=== PATIENT | male | born 1955 | race Caucasian/White ===

== ENCOUNTER → 2019-02-13 | Day surgery (SDC) | payer BC ==
[~2019-02-13] VITALS: Ht 167.6 cm; Wt 79.4 kg
[~2019-02-13] MED LIST: ALLOPURINOL300 MG PO; AMLODIPINE BESY10 MG PO; GLUCOPHAGE1000 MG PO; HYDR25T PO; LEVOXYL75 MCG PO; ZESTRIL40 MG PO
--- NOTE | ~2019-02-13 | PROC NOTE ---
[place], [place] PROCEDURE NOTE NAME: LIVAN LARA UNIT #: [id number] ROOM: DOCTOR: LEONARDA WADSWORTH MD,KAILEY BIRTHDATE: [birth year] DOS: 02/13/2019 BRONCHOSCOPY REPORT PREOPERATIVE DIAGNOSES: Bilateral pulmonary nodule, silicosis, abnormal PPD test. POSTOPERATIVE DIAGNOSES: Bilateral pulmonary nodule, silicosis, abnormal PPD test. COMPLICATIONS: None. PROCEDURE DESCRIPTION: Informed consent obtained for the patient. The patient brought to the OR and placed in supine position. Conscious sedation administered by the Anesthesia Department. After achieving proper sedation, airway introduced into the mouth. Bronchoscope advanced to airway into laryngeal area. Epiglottis and vocal cords were seen. Vocal cords moving symmetrical with movement. Tracheal lumen, right upper, right middle, right lower, left upper, lingular, and lower bronchi all examined. Minimal secretion present in endobronchial subsegment. Bronchial washing taken, endobronchial subsegment bilaterally without difficulty, sent for culture. Procedure well tolerated by the patient without difficulty. Postoperative findings were discussed with the patient's family members. KAILEY BROWER MD CM:PROCNOTE:PROCEDURE NOTE [id number] KAILEY WADSWORTH MD
[2019-02-13 07:20] VITALS: BP 136/83
[2019-02-13 08:49] VITALS: BP 110/69
[2019-02-13 09:04] VITALS: BP 127/69
[2019-02-13 09:16] VITALS: BP 122/71
[2019-02-14 16:06] LABS: ACID FAST SPEC PROCESSING Concentration (.)
== END | disposition home or self-care (01) ==
LOC: SDC 02-11 14:00
PROVIDERS: Internal Medicine Critical Care Medicine
DX: J62.8 Pneumoconiosis due to other dust containing silica (principal); I10 Essential (primary) hypertension; R76.12 Nonspecific reaction to cell mediated immunity measurement of gamma interferon antigen response without active tuberculosis; E11.9 Type 2 diabetes mellitus without complications; Z87.891 Personal history of nicotine dependence; Z98.890 Other specified postprocedural states; Z79.84 Long term (current) use of oral hypoglycemic drugs; Z79.899 Other long term (current) drug therapy; Z82.49 Family history of ischemic heart disease and other diseases of the circulatory system

== ENCOUNTER → 2023-01-17 | Outpatient (CLI) | payer BC ==
[~2023-01-17] MED LIST changes: +CEPHALEXIN500 M1 PO
[2023-01-17 10:38] LABS: HEMATOCRIT 45.1 % (42.0-52.0); MEAN CELL VOLUME 82.3 fl (80.0-94.0); MEAN CORPUSCULAR HGB 28.6 pg (27.0-31.0); MEAN CORPUSCULAR HGB CONC 34.8 g/dl (33.0-37.0); MEAN PLATELET VOLUME 10.3 fl (9.6-12.3); PLATELET COUNT AUTOMATED 341 10*3/uL (130-400); RED BLOOD COUNT 5.48 10*6/uL (4.50-5.90); RED CELL DISTRI WIDTH 12.9 % (0-14.5); WHITE BLOOD COUNT 10.3 10*3/uL (4.8-10.8)
[2023-01-17 10:44] LABS: BILIRUBIN Negative (Negative); BLOOD Negative (Negative); CLARITY Clear (Clear); COLOR Yellow (Yellow); GLUCOSE Negative (Negative); KETONE Negative (Negative); LEUKO ESTERASE Negative (Negative); NITRITE Negative (Negative); SPECIFIC GRAVITY 1.025 (1.001-1.030)
[2023-01-17 10:52] LABS: MANUAL DIFF REFLEX YES
[2023-01-17 11:00] LABS: BACTERIA TRACE; WBC 0-2 wbc/hpf (0-5)
[2023-01-17 11:28] LABS: BASOPHILS 1 % (0-1); BURR CELLS FEW; OVALOCYTES FEW; PLATELET SUFFICIENCY NORMAL (NORMAL); POLYCHROMASIA SLIGHT; TOTAL CELLS COUNTED 100 #CELLS; TOXIC GRANULATION SLIGHT; VACUOLATION OF NEUTROPHILS SLIGHT
[2023-01-17 11:52] LABS: ALKALINE PHOSPHATASE 73 U/L (46-116); BUN 13 mg/dl (9-23); CHLORIDE 106 mmol/L (98-107); POTASSIUM 3.3 mmol/L (3.4-5.1); SGPT/ALT 31 U/L (10-49); TOTAL PROTEIN 6.9 gm/dL (6.0-8.0)
== END | disposition home or self-care (01) ==
LOC: LAB 10:17
PROVIDERS: ATTEND Urology
DX: R33.9 Retention of urine, unspecified (principal); R31.9 Hematuria, unspecified

== ENCOUNTER → 2023-01-22 | Outpatient (CLI) | payer BC | END | disposition home or self-care (01) | LOC: CT 00:20 | PROVIDERS: ATTEND Urology | DX: K76.0 Fatty (change of) liver, not elsewhere classified (principal); R31.9 Hematuria, unspecified; R33.9 Retention of urine, unspecified; J98.11 Atelectasis; K80.20 Calculus of gallbladder without cholecystitis without obstruction; N40.0 Benign prostatic hyperplasia without lower urinary tract symptoms; R59.0 Localized enlarged lymph nodes; R91.1 Solitary pulmonary nodule ==

== ENCOUNTER → 2023-05-17 | Outpatient (CLI) | payer BC ==
[2023-05-17 10:05] LABS: BASO # 0.1 10*3/uL (0.0-0.1); BASO % 1.1 % (0.0-1.0); EOS # 0.1 10*3/uL (0.0-0.4); EOS % 1.3 % (1.0-4.0); HEMATOCRIT 46.2 % (42.0-52.0); LYMPH % 12.5 % (27.0-41.0); MEAN CELL VOLUME 82.6 fl (80.0-94.0); MEAN CORPUSCULAR HGB 27.9 pg (27.0-31.0); MEAN CORPUSCULAR HGB CONC 33.8 g/dl (33.0-37.0); MEAN PLATELET VOLUME 10.4 fl (9.6-12.3); MONO # 0.7 10*3/uL (0.1-1.0); MONO % 8.7 % (3.0-9.0); NEUT # 5.9 10*3/uL (2.3-7.9); NEUT % 74.8 % (47.0-73.0); PLATELET COUNT AUTOMATED 274 10*3/uL (130-400); RED BLOOD COUNT 5.59 10*6/uL (4.50-5.90); RED CELL DISTRI WIDTH 13.2 % (0-14.5); WHITE BLOOD COUNT 7.9 10*3/uL (4.8-10.8)
[2023-05-17 10:32] LABS: ALKALINE PHOSPHATASE 73 U/L (46-116); BUN 10 mg/dl (9-23); CHLORIDE 104 mmol/L (98-107); POTASSIUM 3.2 mmol/L (3.4-5.1); SGPT/ALT 31 U/L (5-49); TOTAL PROTEIN 6.8 gm/dL (6.0-8.0)
[2023-05-17 10:33] LABS: URIC ACID 5.9 mg/dL (3.7-9.2)
== END | disposition home or self-care (01) ==
LOC: LAB 01:41
PROVIDERS: Internal Medicine Nephrology; ATTEND Urology
DX: I10 Essential (primary) hypertension (principal); D40.0 Neoplasm of uncertain behavior of prostate; R53.83 Other fatigue; E11.65 Type 2 diabetes mellitus with hyperglycemia; M10.9 Gout, unspecified

== ENCOUNTER 2023-06-03 16:16 | Inpatient (IN) | payer BC, MEDICARE ==
[~2023-06-03] VITALS: Ht 167.6 cm; Wt 73.7 kg
[2023-06-03 16:24] VITALS: BP 124/69
[2023-06-03] MEDS ORDERED: SODIUM CHLORIDE 0.9% 1,000 ML IV ONE (16:35)
[2023-06-03 16:52] LABS: BILIRUBIN Negative (Negative); BLOOD 2+ (Negative); CLARITY Clear (Clear); COLOR Yellow (Yellow); GLUCOSE Negative (Negative); KETONE Negative (Negative); LEUKO ESTERASE Negative (Negative); NITRITE Negative (Negative); PH 5.5 (4.5-8.0); SPECIFIC GRAVITY 1.015 (1.001-1.030); UROBILINOGEN 0.2 E.U./dl (0.0-1.0)
[2023-06-03 16:52] LABS: BASO # 0.1 10*3/uL (0.0-0.1); BASO % 0.5 % (0.0-1.0); EOS # 0.1 10*3/uL (0.0-0.4); EOS % 0.3 % (1.0-4.0); HEMATOCRIT 53.1 % (42.0-52.0); LYMPH # 1.3 10*3/uL (1.3-4.4); LYMPH % 7.3 % (27.0-41.0); MEAN CELL VOLUME 83.5 fl (80.0-94.0); MEAN CORPUSCULAR HGB CONC 33.5 g/dl (33.0-37.0); MEAN PLATELET VOLUME 10.8 fl (9.6-12.3); MONO # 1.2 10*3/uL (0.1-1.0); MONO % 6.6 % (3.0-9.0); NEUT # 14.9 10*3/uL (2.3-7.9); NEUT % 84.1 % (47.0-73.0); PLATELET COUNT AUTOMATED 546 10*3/uL (130-400); RED BLOOD COUNT 6.36 10*6/uL (4.50-5.90); RED CELL DISTRI WIDTH 13.6 % (0-14.5); WHITE BLOOD COUNT 17.8 10*3/uL (4.8-10.8)
[2023-06-03 17:03] LABS: BACTERIA TRACE; EPITHELIAL CELLS 0-2; RBC 31-40 rbc/hpf (0-2); WBC 0-2 wbc/hpf (0-5)
[2023-06-03] MEDS ORDERED: POTASSIUM CHLORIDE 20 MEQ TAB PO ONE (17:25)
[2023-06-03] MEDS ORDERED: AZITHROMYCIN 250 ML IV ONE (19:20)
[2023-06-03] MEDS ORDERED: Ceftriaxone Sodium 1 GM/10 ML SYR IV ONE (19:20)
[2023-06-03 20:19] VITALS: BP 145/83
[2023-06-03] MEDS ORDERED: BISACODYL 10 MG SUPP R PRN (20:55)
[2023-06-03] MEDS ORDERED: ACETAMINOPHEN 325 MG TAB PO PRN (20:55)
[2023-06-03] MEDS ORDERED: MORPHINE Sulfate 2 MG/ML SYR IV PRN (20:55)
[2023-06-03] MEDS ORDERED: BISACODYL 5 MG TAB PO PRN (20:55)
[2023-06-03] MEDS ORDERED: Magnesium Hydroxide 30 ML UDC PO PRN (20:55)
[2023-06-03] MEDS ORDERED: Acetaminophen/Hydrocodone 5 MG/325 MG TABLET PO PRN (20:55)
[2023-06-03] MEDS ORDERED: TEMAZEPAM 15 MG CAP PO PRN (20:55)
[2023-06-03] MEDS ORDERED: Pantoprazole Sodium 40 MG TAB PO PRN (21:00)
[2023-06-03] MEDS ORDERED: SODIUM CHLORIDE 0.9% 1,000 ML IV SCH (21:05)
[2023-06-03] MEDS ORDERED: DEXTROSE 10 % IN WATER 250 ML IV PRN (21:05)
[2023-06-03] MEDS ORDERED: INSULIN LISPRO 1 UNIT/0.01 ML SQ SCH (22:00)
[2023-06-04 00:13] VITALS: BP 137/71
[2023-06-04 06:27] VITALS: BP 173/88
[2023-06-04 06:52] LABS: BASO # 0.1 10*3/uL (0.0-0.1); BASO % 0.5 % (0.0-1.0); EOS # 0.1 10*3/uL (0.0-0.4); EOS % 1.1 % (1.0-4.0); HEMATOCRIT 47.2 % (42.0-52.0); LYMPH # 1.4 10*3/uL (1.3-4.4); LYMPH % 10.5 % (27.0-41.0); MEAN CORPUSCULAR HGB 27.9 pg (27.0-31.0); MEAN CORPUSCULAR HGB CONC 33.7 g/dl (33.0-37.0); MEAN PLATELET VOLUME 10.9 fl (9.6-12.3); MONO # 1.2 10*3/uL (0.1-1.0); MONO % 9.3 % (3.0-9.0); NEUT # 10.1 10*3/uL (2.3-7.9); NEUT % 77.4 % (47.0-73.0); RED BLOOD COUNT 5.69 10*6/uL (4.50-5.90); RED CELL DISTRI WIDTH 13.8 % (0-14.5); WHITE BLOOD COUNT 13.1 10*3/uL (4.8-10.8)
[2023-06-04 06:53] LABS: PLATELET COUNT AUTOMATED 377 10*3/uL (130-400)
[2023-06-04 08:35] LABS: BUN 23 mg/dl (9-23); CHLORIDE 104 mmol/L (98-107); FREE T4 2.12 ng/dl (0.89-1.76); POTASSIUM 3.4 mmol/L (3.4-5.1)
[2023-06-04 09:53] VITALS: BP 145/93
[2023-06-04] MEDS ORDERED: Enoxaparin Sodium 40 MG/0.4 ML SYR SC SCH (10:00)
[2023-06-04] MEDS ORDERED: GUAIFENESIN 600 MG TAB ER PO SCH (10:00)
[2023-06-04 14:39] VITALS: BP 154/85
[2023-06-04] MEDS ORDERED: FINASTERIDE5 M1 PO (15:51)
[2023-06-04] MEDS ORDERED: VITAMIN D325 MC1 PO (15:52)
[2023-06-04] MEDS ORDERED: CIPRO500 MG PO (15:53)
[2023-06-04] MEDS ORDERED: Ceftriaxone Sodium 1 GM,IV 1 EA in SYRINGE INFUSION 10 ML IV SCH (18:00)
[2023-06-04 20:00] VITALS: BP 168/69
[2023-06-04] MEDS ORDERED: AZITHROMYCIN 250 ML IV SCH (20:00)
[2023-06-05] VITALS: BP 158/68
[2023-06-05 05:33] LABS: ALKALINE PHOSPHATASE 43 U/L (46-116); BUN 16 mg/dl (9-23); CHLORIDE 103 mmol/L (98-107); SGPT/ALT 16 U/L (5-49); TOTAL PROTEIN 5.8 gm/dL (6.0-8.0)
[2023-06-05] MEDS ORDERED: Levothyroxine Sodium 75 MCG TAB PO SCH (06:00)
[2023-06-05 06:08] LABS: BASO # 0.1 10*3/uL (0.0-0.1); BASO % 0.5 % (0.0-1.0); EOS # 0.1 10*3/uL (0.0-0.4); EOS % 0.6 % (1.0-4.0); HEMATOCRIT 43.5 % (42.0-52.0); LYMPH # 0.8 10*3/uL (1.3-4.4); MEAN CELL VOLUME 84.5 fl (80.0-94.0); MEAN CORPUSCULAR HGB CONC 33.1 g/dl (33.0-37.0); MEAN PLATELET VOLUME 11.6 fl (9.6-12.3); NEUT # 8.5 10*3/uL (2.3-7.9); NEUT % 80.3 % (47.0-73.0); PLATELET COUNT AUTOMATED 288 10*3/uL (130-400); RED BLOOD COUNT 5.15 10*6/uL (4.50-5.90); RED CELL DISTRI WIDTH 13.4 % (0-14.5); WHITE BLOOD COUNT 10.5 10*3/uL (4.8-10.8)
[2023-06-05 08:55] VITALS: BP 163/93
[2023-06-05] MEDS ORDERED: FINASTERIDE 5 MG TAB PO SCH (10:00)
[2023-06-05] MEDS ORDERED: Vitamin D 1,000 IU TAB (25 MCG) PO SCH (10:00)
[2023-06-05] MEDS ORDERED: Tamsulosin Hydrochloride 0.4 MG CAP PO SCH (10:00)
[2023-06-05] MEDS ORDERED: LISINOPRIL 40 MG TAB PO SCH (10:00)
[2023-06-05] MEDS ORDERED: ALLOPURINOL 300 MG TAB PO SCH (10:00)
[2023-06-05 12:28] VITALS: BP 187/90
[2023-06-05 12:46] VITALS: BP 164/82
[2023-06-05] MEDS ORDERED: TAMSULOSIN HCL0.4 MG PO (14:18)
== END 2023-06-05 15:47 | disposition home or self-care (01) | DRG 871 ==
LOC: ED 16:16 → 5E 19:48 → EDHOLD 19:48 → 5E 06-04 13:56
PROVIDERS: Nurse Practitioner Family; Student in an Organized Health Care Education/Training Program; ADMIT Internal Medicine; ATTEND Internal Medicine
DX: A41.9 Sepsis, unspecified organism (principal); N17.0 Acute kidney failure with tubular necrosis; D84.89 Other immunodeficiencies; E87.6 Hypokalemia; R33.9 Retention of urine, unspecified; I10 Essential (primary) hypertension; J20.9 Acute bronchitis, unspecified; D75.839 Thrombocytosis, unspecified; R31.9 Hematuria, unspecified; K80.20 Calculus of gallbladder without cholecystitis without obstruction; E11.65 Type 2 diabetes mellitus with hyperglycemia; E03.9 Hypothyroidism, unspecified; E78.5 Hyperlipidemia, unspecified; J84.10 Pulmonary fibrosis, unspecified; Z79.899 Other long term (current) drug therapy; Z87.891 Personal history of nicotine dependence; Z79.84 Long term (current) use of oral hypoglycemic drugs; Z88.8 Allergy status to other drugs, medicaments and biological substances

== ENCOUNTER → 2023-06-11 | Outpatient (CLI) | payer BC, MEDICARE ==
[~2023-06-11] MED LIST changes: +CIPRO500 MG PO; +FINASTERIDE5 M1 PO; +TAMSULOSIN HCL0.4 MG PO; +VITAMIN D325 MC1 PO
[2023-06-11 09:28] LABS: BASO # 0.1 10*3/uL (0.0-0.1); BASO % 0.9 % (0.0-1.0); EOS # 0.2 10*3/uL (0.0-0.4); EOS % 1.5 % (1.0-4.0); HEMATOCRIT 48.1 % (42.0-52.0); LYMPH # 1.4 10*3/uL (1.3-4.4); MEAN CELL VOLUME 83.7 fl (80.0-94.0); MEAN CORPUSCULAR HGB 27.7 pg (27.0-31.0); MEAN CORPUSCULAR HGB CONC 33.1 g/dl (33.0-37.0); MONO # 0.7 10*3/uL (0.1-1.0); NEUT # 9.3 10*3/uL (2.3-7.9); NEUT % 78.4 % (47.0-73.0); PLATELET COUNT AUTOMATED 445 10*3/uL (130-400); RED BLOOD COUNT 5.75 10*6/uL (4.50-5.90); RED CELL DISTRI WIDTH 13.6 % (0-14.5); WHITE BLOOD COUNT 11.8 10*3/uL (4.8-10.8)
[2023-06-11 09:38] LABS: ACT PARTIAL THROMBO TIME 28.2 SECONDS (20.0-32.1)
[2023-06-11 10:08] LABS: ALKALINE PHOSPHATASE 57 U/L (46-116); BUN 14 mg/dl (9-23); CHLORIDE 99 mmol/L (98-107); POTASSIUM 3.4 mmol/L (3.4-5.1); SGPT/ALT 25 U/L (5-49)
== END | disposition home or self-care (01) ==
LOC: LAB 02:08
PROVIDERS: ATTEND Urology
DX: Z01.818 Encounter for other preprocedural examination (principal); D58.9 Hereditary hemolytic anemia, unspecified; I10 Essential (primary) hypertension

== ENCOUNTER 2023-06-13 12:41 | Emergency (ER) | payer BC ==
[~2023-06-13] VITALS: Wt 72.6 kg
== END 2023-06-13 14:30 | disposition left against medical advice (07) ==
LOC: ED 12:41
DX: R42 Dizziness and giddiness (principal); Z53.21 Procedure and treatment not carried out due to patient leaving prior to being seen by health care provider

== ENCOUNTER 2023-07-18 11:11 | Emergency (ER) | payer BC ==
[~2023-07-18] VITALS: Ht 167.6 cm; Wt 72.1 kg
[~2023-07-18 11:11] MED LIST changes: +ASPIRIN ADULT L81 M2 PO; +CARVEDILOL25 MG PO; +CEFUROXIME AXE250 MG PO; +COREG25 MG PO; +LIPITOR40 MG PO; +MECLIZINE HYD12.5 MG PO; +NORVASC5 MG PO; +ZESTRIL,PRINIVIL5 MG PO
[2023-07-18 12:10] LABS: BASO # 0.1 10*3/uL (0.0-0.1); BASO % 1.2 % (0.0-1.0); EOS # 0.1 10*3/uL (0.0-0.4); EOS % 1.1 % (1.0-4.0); LYMPH # 0.9 10*3/uL (1.3-4.4); LYMPH % 11.6 % (27.0-41.0); MEAN CELL VOLUME 87.3 fl (80.0-94.0); MEAN CORPUSCULAR HGB 29.1 pg (27.0-31.0); MEAN CORPUSCULAR HGB CONC 33.3 g/dl (33.0-37.0); MEAN PLATELET VOLUME 10.8 fl (9.6-12.3); MONO # 0.8 10*3/uL (0.1-1.0); MONO % 9.7 % (3.0-9.0); NEUT % 75.4 % (47.0-73.0); PLATELET COUNT AUTOMATED 332 10*3/uL (130-400); RED BLOOD COUNT 4.81 10*6/uL (4.50-5.90); RED CELL DISTRI WIDTH 14.2 % (0-14.5)
[2023-07-18 12:24] LABS: ACT PARTIAL THROMBO TIME 29.7 SECONDS (20.0-32.1)
[2023-07-18 12:33] LABS: ALKALINE PHOSPHATASE 64 U/L (46-116); BUN 8 mg/dl (9-23); CHLORIDE 103 mmol/L (98-107); POTASSIUM 3.7 mmol/L (3.4-5.1); SGPT/ALT 14 U/L (5-49); TOTAL PROTEIN 6.6 gm/dL (6.0-8.0)
[2023-07-18 13:04] LABS: BILIRUBIN Negative (Negative); BLOOD Negative (Negative); CLARITY Clear (Clear); COLOR Yellow (Yellow); GLUCOSE Negative (Negative); KETONE Negative (Negative); LEUKO ESTERASE 3+ (Negative); NITRITE Positive (Negative); PH 6.5 (4.5-8.0); UROBILINOGEN 0.2 E.U./dl (0.0-1.0)
[2023-07-18 13:10] LABS: BACTERIA 3+; RBC 0-2 rbc/hpf (0-2); WBC TNTC wbc/hpf (0-5)
[2023-07-18] MEDS ORDERED: Ceftriaxone Sodium 1 GM/10 ML SYR IV ONE (13:15)
[2023-07-18] MEDS ORDERED: CIPRO500 MG PO (13:30)
== END 2023-07-18 14:17 | disposition home or self-care (01) ==
LOC: ED 11:11
PROVIDERS: Student in an Organized Health Care Education/Training Program
DX: N39.0 Urinary tract infection, site not specified (principal); I10 Essential (primary) hypertension; E78.5 Hyperlipidemia, unspecified; R42 Dizziness and giddiness; Z86.73 Personal history of transient ischemic attack (TIA), and cerebral infarction without residual deficits; Z79.899 Other long term (current) drug therapy; Z79.82 Long term (current) use of aspirin; Z79.2 Long term (current) use of antibiotics; Z87.891 Personal history of nicotine dependence

== ENCOUNTER → 2023-07-28 | Outpatient (CLI) | payer BC, MEDICARE ==
[2023-07-28 10:37] LABS: BASO # 0.1 10*3/uL (0.0-0.1); BASO % 1.4 % (0.0-1.0); EOS # 0.2 10*3/uL (0.0-0.4); EOS % 2.6 % (1.0-4.0); HEMATOCRIT 43.8 % (42.0-52.0); LYMPH # 0.9 10*3/uL (1.3-4.4); LYMPH % 13.4 % (27.0-41.0); MEAN CELL VOLUME 87.4 fl (80.0-94.0); MEAN CORPUSCULAR HGB 28.5 pg (27.0-31.0); MEAN CORPUSCULAR HGB CONC 32.6 g/dl (33.0-37.0); MEAN PLATELET VOLUME 10.8 fl (9.6-12.3); MONO # 0.6 10*3/uL (0.1-1.0); MONO % 9.2 % (3.0-9.0); NEUT % 72.4 % (47.0-73.0); PLATELET COUNT AUTOMATED 356 10*3/uL (130-400); RED BLOOD COUNT 5.01 10*6/uL (4.50-5.90); RED CELL DISTRI WIDTH 14.1 % (0-14.5); WHITE BLOOD COUNT 6.9 10*3/uL (4.8-10.8)
[2023-07-28 11:03] LABS: ALKALINE PHOSPHATASE 72 U/L (46-116); BUN 9 mg/dl (9-23); CHLORIDE 107 mmol/L (98-107); POTASSIUM 4.4 mmol/L (3.4-5.1); SGPT/ALT 14 U/L (5-49); TOTAL PROTEIN 6.7 gm/dL (6.0-8.0)
== END ==
LOC: LAB 00:16
PROVIDERS: ATTEND Urology
DX: R97.20 Elevated prostate specific antigen [PSA] (principal); R53.83 Other fatigue; N39.0 Urinary tract infection, site not specified